=== PATIENT | male | born 1965 | race African-American/Black ===

== ENCOUNTER 2017-05-09 06:35 | Inpatient (IN) | payer OTHER ==
[~2017-05-09] VITALS: Ht 185.4 cm; Wt 98.4 kg
[2017-05-09] MEDS ORDERED: HYDR25TA PO (07:53)
[2017-05-09] MEDS ORDERED: ASPI-1159 PO (07:53)
[2017-05-09] MEDS ORDERED: SODIUM CHLORIDE 0.9% 1,000 ML IV ONE (08:15)
[2017-05-09 08:42] LABS: BASOPHILS % 0.2 % (0.0-2.0); EOSINOPHILS % 0.2 % (0.0-5.0); HEMATOCRIT. 43.6 % (42.0-52.0); HEMOGLOBIN. 14.4 g/dL (14.0-18.0); LYMPHOCYTES % 10.7 % (20.0-50.0); MEAN CORPUSCULAR VOLUME 84.9 fL (80.0-94.0); MEAN PLATELET VOLUME 7.9 fl (7.4-10.4); MONOCYTES % 6.9 % (2.0-8.0); PLATELET 191 x1000/uL (130-400); RED BLOOD CELL COUNT 5.14 mill/uL (4.7-6.1); RED CELL DISTRIBUTION WIDTH 13.9 % (11.6-14.6)
[2017-05-09 08:48] LABS: INR 1.1; PARTIAL THROMBOPLASTIN TIME 22.4 sec (23.4-31.0)
[2017-05-09 08:58] LABS: CARBON DIOXIDE 32 mEq/L (21-32); CHLORIDE 98 mEq/L (98-107); TROPONIN I < 0.02 ng/mL (0.00-0.04)
[2017-05-09] MEDS ORDERED: GUAIFENESIN 200MG/10ML SUGAR FREE UDC PO PRN (16:15)
[2017-05-09] MEDS ORDERED: ONDANSETRON HCL 4MG/2ML VIAL IV PRN (16:15)
[2017-05-09] MEDS ORDERED: MAGNESIUM/ALUMINUM HYDROXIDE/SIMETHICONE 30ML UDC PO PRN (16:15)
[2017-05-09] MEDS ORDERED: ACETAMINOPHEN 325MG TABLET PO PRN (16:15)
[2017-05-09] MEDS ORDERED: DIPHENHYDRAMINE 50MG/ML VIAL IV PRN (16:15)
[2017-05-09] MEDS ORDERED: DEXT 5%/0.9% NACL 1,000 ML IV SCH (17:00)
[2017-05-09] MEDS: ENOXAPARIN 40MG/0.4ML SYR SUBCUT SCH (17:00)
[2017-05-09 17:01] VITALS: BP 145/80
[2017-05-09] MEDS ORDERED: TERA2CAP4 PO (17:02)
[2017-05-09 17:05] VITALS: BP 145/80
[2017-05-09] MEDS: HYDROCHLOROTHIAZIDE 25MG TABLET PO SCH (18:04)
[2017-05-09 20:00] VITALS: BP_SYST 121; BP_SYST 124; BP_SYST 127; BP_DIAS 69; BP_DIAS 74; BP_DIAS 81
[2017-05-09] MEDS: SODIUM CHLORIDE 0.9% INJ 3ML FLUSH IVF SCH (22:00)
[2017-05-10] VITALS: BP 128/66
[2017-05-10 04:00] VITALS: BP 118/61
[2017-05-10 06:02] LABS: BASOPHILS % 0.3 % (0.0-2.0); LYMPHOCYTES % 29.2 % (20.0-50.0); MEAN CORPUSCULAR HEMOGLOBIN 28.4 pg (28.0-32.0); MEAN CORPUSCULAR VOLUME 85.4 fL (80.0-94.0); MEAN PLATELET VOLUME 8.3 fl (7.4-10.4); MONOCYTES % 9.6 % (2.0-8.0); NEUTROPHILS % 59.9 % (40.0-76.0); PLATELET 194 x1000/uL (130-400); RED BLOOD CELL COUNT 4.92 mill/uL (4.7-6.1); RED CELL DISTRIBUTION WIDTH 13.7 % (11.6-14.6)
[2017-05-10] MEDS: SODIUM CHLORIDE 0.9% INJ 3ML FLUSH IVF SCH ×2 (06:18→17:54)
[2017-05-10 07:06] LABS: CARBON DIOXIDE 30 mEq/L (21-32); CHLORIDE 100 mEq/L (98-107); TROPONIN I < 0.02 ng/mL (0.00-0.04)
[2017-05-10 08:20] VITALS: BP 138/78
[2017-05-10] MEDS ORDERED: ASPIRIN 81MG EC TABLET PO SCH (09:00)
[2017-05-10] MEDS: ENOXAPARIN 40MG/0.4ML SYR SUBCUT SCH (09:00)
[2017-05-10] MEDS: HYDROCHLOROTHIAZIDE 25MG TABLET PO SCH (09:07)
[2017-05-10 11:58] VITALS: BP_SYST 144; BP_SYST 152; BP_SYST 156; BP_DIAS 84; BP_DIAS 96
[2017-05-10] MEDS ORDERED: AMLODIPINE 5MG TABLET PO SCH (12:15)
[2017-05-10 12:57] LABS: *AMPHETAMINES SCREEN URINE NEGATIVE (NEGATIVE); *BARBITURATES SCREEN URINE NEGATIVE (NEGATIVE); *BENZODIAZEPINES SCREEN URINE NEGATIVE (NEGATIVE); *COCAINE SCREEN URINE NEGATIVE (NEGATIVE); CANNABINOID URINE SCREEN NEGATIVE (NEGATIVE); METHADONE URINE SCREEN NEGATIVE (NEGATIVE); OPIATES URINE SCREEN NEGATIVE (NEGATIVE); PHENCYCLIDINE URINE SCREEN NEGATIVE (NEGATIVE)
[2017-05-10 16:30] VITALS: BP 122/88
[2017-05-11] MEDS ORDERED: AMLODIPINE 5MG TABLET PO SCH (09:00)
== END 2017-05-10 20:47 | disposition short-term general hospital (02) | DRG 74 ==
LOC: ER 06:35 → 6WST 11:38 → EDBEDREQ 11:40 → ENRESERV 12:43
PROVIDERS: ADMIT Internal Medicine; ATTEND Internal Medicine
DX: G90.9 Disorder of the autonomic nervous system, unspecified (principal); I11.9 Hypertensive heart disease without heart failure; N40.0 Benign prostatic hyperplasia without lower urinary tract symptoms; E87.6 Hypokalemia; W19.XXXA Unspecified fall, initial encounter; Y93.89 Activity, other specified; Y92.091 Bathroom in other non-institutional residence as the place of occurrence of the external cause; Y99.8 Other external cause status; Z79.899 Other long term (current) drug therapy; Z83.3 Family history of diabetes mellitus; Z82.49 Family history of ischemic heart disease and other diseases of the circulatory system
CPT/HCPCS: 36415; 70450; 71010; 80048; 80053; 80305; 83735; 84484; 85025; 85610; 85730; 93005; 93306; 96360; 96361; 99285; J1650; J7030; J7042